=== PATIENT | female | born 1930 | race Caucasian/White ===

== ENCOUNTER 2016-02-23 10:27 | Emergency (ER) | payer OTHER ==
[~2016-02-23] VITALS: Ht 157.5 cm; Wt 50.0 kg
[2016-02-23 10:31] VITALS: Ht 157.5 cm; Wt 50.0 kg
[2016-02-23] MEDS ORDERED: CETI10TA84 PO (10:54)
[2016-02-23] MEDS ORDERED: LABE1TAB28 PO (10:54)
[2016-02-23] MEDS ORDERED: AMLO-110 PO (10:54)
[2016-02-23] MEDS ORDERED: [UNRECOGNIZED DRUG - CODE] PO (10:54)
[2016-02-23] MEDS ORDERED: ALBU18002 INH (10:54)
--- NOTE | 2016-02-23 11:03 | History and Physical ---
History & Physical Date Feb 23, 2016. Chief Complaint bleeding right ear History of Present Illness The patient is a 85 year old female with complaints of continued bleeding right ear, cauterized by [facility] Additional History Hepatic Disease: No Endocrine Disorder: No Kidney Disease: No Hypertension: Yes Heart Disease: No Bleeding Tendencies: No Infectious Diseases: No Allergies Coded Allergies: No Known Allergies (Unverified , 02/23/16) Home Medications Scheduled Albuterol Sulfate (Proair Respiclick), 2 PUFF INH Q6 Amlodipine (Norvasc), 5 MG PO DAILY Cetirizine (Zyrtec), 10 MG PO DAILY Labetalol (Normodyne), 100 MG PO BID Scheduled PRN Phenyleph-Promethazine W/ Cod (Promethazine/Phenylephrin 5-6.25-10 mg/5Ml), 5 ML PO Q4 PRN for Cough Physical Examination Skin: warm/dry Eyes: normal inspection ENT: + pertinent finding (bleeding right ear) Diagnosis bleeding right ear Plan of Treatment tympanoplasty/canal plasty right ear, hemostasis
[2016-02-23 12:54] VITALS: O2SAT 97
[2016-02-23] MEDS ORDERED: TETRACAINE HCL EXT SCH (13:00)
[2016-02-23] MEDS ORDERED: FENTANYL CITRATE INJ 50 MCG/1 ML 2 ML VIAL ONE (13:03)
[2016-02-23] MEDS ORDERED: MIDAZOLAM HCL 1 MG/ML 2ML VIAL ONE (13:03)
[2016-02-23] MEDS ORDERED: LIDOCAINE HCL 2% 2 ML VIAL (20MG/ML) ONE (13:04)
[2016-02-23] MEDS ORDERED: PROPOFOL IV EMULSION 10 MG/ML 20 ML VIAL IV ONE (13:06)
[2016-02-23] MEDS ORDERED: ONDANSETRON INJ 2 MG/ML 2 ML VIAL ONE (13:06)
[2016-02-23] MEDS ORDERED: TETRACAINE 4% TOPICAL SOLUTION TOP ONE ×2 (13:30)
--- NOTE | 2016-02-23 14:05 | Discharge Instructions ---
Discharge Instructions Admission Reason for Admission: Bleeding From Rt Ear Discharge Discharge Diagnosis / Problem: grajnuloma right ear Discharge Goals Goal(s): Therapeutic intervention Activity Recommendations Activity Limitations: resume your previous activity . Instructions / Follow-Up Instructions / Follow-Up ACTIVITY RECOMMENDATIONS: No limitations OVER THE COUNTER MEDICATIONS: Continue any other previous medications unless otherwise indicated by your surgeon. * You may use Tylenol for mild pain as per bottle instructions. SPECIAL CARE INSTRUCTIONS: * Keep operative ear dry. * Change cotton balls 4 times per day. Leave packing in ear. * Please call with any increasing pain, increasing drainage, active bleeding, redness and/or swelling, or any concerns. Dr. Naik's office number is . Cell [phone] FOLLOW UP VISIT: If not already scheduled, please call to schedule follow-up appointment with Dr. Naik in 2 weeks Current Hospital Diet Patient's current hospital diet: Discharge Diet Recommended Diet: Regular Diet Procedures Procedures Performed: Tympanoplasty, right ear Pending Studies Studies pending at discharge: no Medical Emergencies . Who to Call and When: Medical Emergencies: If at any time you feel your situation is an emergency, please call 911 immediately. . Non-Emergent Contact Non-Emergency issues call your: Primary Care Provider . "Provider Documentation" section prepared by Alissa Naik. VTE Core Measure Inpt VTE Proph given/why not?: Treatment not indicated [place] Drug Monitoring Program Search Results: no issues identified
[2016-02-23 14:30] VITALS: BP 97/68; PULSE 91; TEMP 36.9; O2SAT 95
[2016-02-23 14:43] VITALS: BP 99/77; PULSE 91; O2SAT 96
--- NOTE | 2016-02-23 14:43 | Anesthesiology Progress Note ---
Anesthesia Post Op Note Date & Time Feb 23, 2016 at 14:42 Vital Signs Pain Intensity: 0 Vital Signs Past 12 Hours Date Time Temp Pulse Resp B/P Pulse Ox O2 Delivery O2 Flow Rate FiO2 02/23/16 14:30 36.9 91 20 97/68 95 Room Air 02/23/16 14:30 36.9 91 20 97/68 95 Room Air 02/23/16 14:26 36.9 91 20 91/73 95 Room Air 02/23/16 14:20 86 18 113/72 94 Room Air 02/23/16 14:10 90 22 126/88 94 Room Air 02/23/16 14:03 36.4 88 22 122/86 96 Room Air 02/23/16 12:54 97 18 116/74 97 Room Air 02/23/16 11:55 93 18 130/81 97 Room Air 02/23/16 10:31 36.7 90 18 92/64 97 Room Air Notes Mental Status: alert / awake / arousable, participated in evaluation Pt Amnestic to Procedure: Yes Nausea / Vomiting: adequately controlled Pain: adequately controlled Airway Patency, RR, SpO2: stable & adequate BP & HR: stable & adequate Hydration State: stable & adequate Anesthetic Complications: no major complications apparent
--- NOTE | 2016-02-23 15:00 | OPERATIVE REPORT ---
DATE OF OPERATION: 02/23/2016 PREOPERATIVE DIAGNOSIS: Bleeding right ear. POSTOPERATIVE DIAGNOSIS: Granuloma, right ear canal. PROCEDURE: Excision of granuloma, right ear canal. SURGEON: Dr. Naik. ANESTHESIA: MAC. COMPLICATIONS: None. BLOOD LOSS: 10 mL. HISTORY OF PRESENT ILLNESS: This 85-year-old lady presented with acute bleeding from the right ear canal. She was treated by ENT at [place] who was not network control operator and the patient was transferred here from [place] with bleeding from the right ear. OPERATION AND FINDINGS: PROCEDURE: The patient was brought to the operating room and placed in semi-sitting position, sedated, the right ear was visualized with the microscope. The blood clot was cleaned. Topical anesthesia tetracaine was used. Topical epinephrine was also used to minimize the bleeding. The granuloma was at the inferior canal. The incision was made around the granuloma using the sickle knife and the round knife excising the granuloma and sending this as specimen. A small amount of bone underneath this granuloma was removed using the bone curette to check for osteitis. The specimen was sent to pathology. The canal was then packed with pieces of Gelfoam, at first small pieces dipped in epinephrine and then a larger strip of Gelfoam to completely pack the right ear canal. The patient tolerated the procedure well and was taken to recovery area in satisfactory condition. I attest to the content of the Intraoperative Record and any orders documented therein. Any exceptio ns are noted below.
== END 2016-02-23 13:04 | disposition home or self-care (01) ==
LOC: C.EDB 10:29 → C.EDC 13:04
DX: H60.41 Cholesteatoma of right external ear (principal); Z68.20 Body mass index [BMI] 20.0-20.9, adult; Z90.49 Acquired absence of other specified parts of digestive tract; Z90.710 Acquired absence of both cervix and uterus; Z90.89 Acquired absence of other organs